=== PATIENT | male | born 1995 ===

== ENCOUNTER 2019-01-11 16:37 | Emergency (ER) | payer MEDICAID, OTHER ==
[~2019-01-11] VITALS: Ht 167.6 cm; Wt 87.5 kg
[~2019-01-11 16:37] MED LIST: NKM
[2019-01-11 17:00] VITALS: BP 140/88
[2019-01-11] MEDS ORDERED: Lidocaine 2% Visc 15ml soln ORAL ONE (17:00)
[2019-01-11] MEDS ORDERED: Acetaminophen 500mg (ES) tab ORAL ONE (17:00)
[2019-01-11] MEDS ORDERED: Dicyclomine HCl 10mg/5ml oral soln ORAL ONE (17:00)
[2019-01-11] MEDS ORDERED: Ketorolac 30mg Inj IM ONE (17:00)
[2019-01-11] MEDS ORDERED: Mylanta II UD 30ml ORAL ONE (17:00)
--- NOTE | 2019-01-11 17:00 | NUR ---
ED Nurse Note: Pt presents to the ED with c/o chest pain. Pt states pain started 30 min ago and is located on left side of chest, aching in nature. Pt also states he started to have slight difficulty swallowing at the same time. Pt states he was eating tamales which preceeded the pain and difficulty swallowing. Pt has hx of asthma. Pt is awake, alert and oriented x 4, speaking in full sentences, breathing is normal and unlabored. 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
--- NOTE | 2019-01-11 17:03 | Emergency Room Report ---
History of Present Illness General Chief Complaint: Chest Pain Source: Patient Present Illness HPI 23-year-old male, past mostly of asthma presents with left-sided chest pain after eating 30 minutes prior to arrival aggravated with movement, aggravated by touching his chest, alleviated by rest, not touching his chest, severity is mild, intermittent, no dyspnea on exertion no shortness of breath, no nausea no vomiting no diaphoresis patient presents for evaluation no cardiac history in the family Allergies: Coded Allergies: No Known Allergies (Unverified , 03/19/13) Patient History Past Medical History: see triage record Reviewed Nursing Documentation: PMH: Agreed; PSxH: Agreed Nursing Documentation-PMH Hx Asthma: Yes Review of Systems All Other Systems: negative except mentioned in HPI Physical Exam Vital Signs Date Time Temp Pulse Resp B/P (MAP) Pulse Ox O2 Delivery O2 Flow Rate FiO2 01/11/19 16:39 97.9 89 20 118/81 (93) 96 Room Air Sp02 EP Interpretation: reviewed, normal General Appearance: well appearing, no apparent distress, alert Head: normocephalic, atraumatic Eyes: bilateral eye PERRL, bilateral eye EOMI ENT: uvula midline, moist mucus membranes Neck: supple, thyroid normal, supple/symm/no masses Respiratory: lungs clear, no respiratory distress, no retraction, no accessory muscle use Cardiovascular #1: normal peripheral pulses, regular rate, rhythm, no edema, no gallop, no murmur Gastrointestinal: non tender, soft, no guarding, no rebound Musculoskeletal: normal inspection Neurologic: alert, oriented x3 Psychiatric: mood/affect normal Skin: no rash, warm/dry Medical Decision Making Diagnostic Impression: Primary Impression: Chest pain Qualified Codes: R07.9 - Chest pain, unspecified ER Course No evidence of ACS, pulmonary embolism, pneumothorax, pneumonia. Historically not abrupt in onset, tearing or ripping, pulses symmetric, no evidence of aortic dissection. Patient presents with atypical chest pain, improving with GI cocktail as well as antiinflammatory meds Disposition home with return precautions EKG Diagnostic Results EKG Time: 16:52 EP Interpretation: NSR, rate 8 5, QTc 416, no acute ST elevations, normal axis Chest X-Ray Diagnostic Results Chest X-Ray Diagnostic Results : Chest X-Ray Ordered: Yes # of Views/Limited/Complete: 1 View Indication: Chest Pain EP Interpretation: Yes Interpretation: no consolidation, no effusion, no pneumothorax, no acute cardiopulmonary disease Impression: No acute disease Electronically Signed by: Lowell Stokes MD Last Vital Signs Date Time Temp Pulse Resp B/P (MAP) Pulse Ox O2 Delivery O2 Flow Rate FiO2 01/11/19 16:39 97.9 89 20 118/81 (93) 96 Room Air Disposition: HOME, SELF-CARE Condition: Stable Referrals: [facility]. [facility] Patient Instructions: Nonspecific Chest Pain Additional Instructions: The patient was provided with discharge instructions, notified to follow-up with a primary care doctor and or specialist in the next 24-48 hours, and to return to the ED if they have worsening of their symptoms. Please note that this report is being documented using [employer] technology. This can lead to erroneous entry secondary to incorrect interpretation by the dictating instrument. Lowell Stokes MD Jan 11, 2019 17:03
[2019-01-11 17:47] VITALS: BP 128/89
--- NOTE | 2019-01-11 17:51 | NUR ---
ER DISCHARGE NOTE: Patient is cleared to be discharged per ERMD, pt is aox4, on room air, with stable vital signs. pt was given dc and prescription instructions, pt was able to verbalize understanding, pt id band removed without complications. pt is able to ambulate with steady gait. pt took all belongings.
--- NOTE | 2019-01-12 09:55 | Diagnostic Imaging Report ---
Indication: Chest pain Technique: One view of the chest Comparison: none Findings: Lungs and pleural spaces are clear. Heart size is normal. Impression: No acute process
--- NOTE | 2019-01-12 15:02 | Cardiology Report ---
APPROVED REPORT EKG Measurement Heart [id number] Normal sinus rhythm Normal ECG
== END 2019-01-11 17:51 | disposition home or self-care (01) ==
LOC: EMR 17:05
DX: R07.9 Chest pain, unspecified (principal); J45.909 Unspecified asthma, uncomplicated
CPT/HCPCS: 71045; 93005; 96372; 99283; J1885